=== PATIENT | male | born 1955 | race American Indian/Alaskan Native ===

== ENCOUNTER 2018-10-12 14:49 | Emergency (ER) | payer SELFPAY ==
--- NOTE | 2018-10-12 17:21 | XRay Report ---
FINAL REPORT EXAM: XR CHEST ROUTINE 2V HISTORY: COUGH TECHNIQUE: Two view chest PA and lateral PRIORS: None. FINDINGS: Cardiac and mediastinal contours are unremarkable. No focal pulmonary infiltrate is identified. No pleural fluid collection seen. Pulmonary vasculature is unremarkable. IMPRESSION: Negative two-view chest
--- NOTE | 2018-10-12 20:06 | Emergency Department Report ---
- General Chief Complaint: Upper Respiratory Infection Stated Complaint: HEADACHE/FEVER/KNOT ON HEAD Time Seen by Provider: 10/12/18 19:48 Source: patient Mode of arrival: Ambulatory Limitations: No Limitations - History of Present Illness Initial Comments: 63-year-old -[place]ian male department complaining of a 5-6 day history of cough, congestion, coryza, myalgia, headaches, fevers sensation.. Reports occasional sputum production and wheezing also normal. Denies any chest pain, shortness of breath, has had a dull throbbing headache which is circumferential and associated with sinus pressure. MD Complaint: fever, cough, rhinorrhea, nasal congestion -: Sudden Quality: dull Consistency: constant Context: sick contacts Associated Symptoms: fever, chills, myalgias, headache, rhinorrhea, nasal congestion, sore throat, cough, nausea. denies: diarrhea, dysuria, confusion, right sweats, weight loss, epistaxis, hoarseness, ear pain - Related Data Previous Rx's Medication Instructions Recorded Last Taken Type ALBUTEROL Inhaler (OR & NICU) 1 puff IH Q4-6H PRN #1 inha 10/12/18 Unknown Rx [ProAir HFA Inhaler] Amoxicillin 500 mg PO QID #40 capsule 10/12/18 Unknown Rx guaiFENesin/CODEINE [Robitussin AC] 5 ml PO Q6H PRN #120 ml 10/12/18 Unknown Rx Allergies Allergy/AdvReac Type Severity Reaction Status Date / Time No Known Allergies Allergy Unverified 10/12/18 15:20 ED Review of Systems ROS: Stated complaint: HEADACHE/FEVER/KNOT ON HEAD Other details as noted in HPI Constitutional: denies: chills, fever Eyes: denies: eye pain, eye discharge, vision change ENT: denies: ear pain, throat pain Respiratory: denies: cough, shortness of breath, wheezing Cardiovascular: denies: chest pain, palpitations Endocrine: no symptoms reported Gastrointestinal: denies: abdominal pain, nausea, diarrhea Genitourinary: denies: urgency, dysuria Musculoskeletal: denies: back pain, joint swelling, arthralgia Skin: denies: rash, lesions Neurological: denies: headache, weakness, paresthesias Psychiatric: denies: anxiety, depression Hematological/Lymphatic: denies: easy bleeding, easy bruising ED Past Medical Hx - Past Medical History Previous Medical History?: No - Surgical History Additional Surgical History: LEFT ANKLE - Social History Smoking Status: Never Smoker Substance Use Type: None - Medications Home Medications: Home Medications Medication Instructions Recorded Confirmed Last Taken Type ALBUTEROL Inhaler (OR & NICU) 1 puff IH Q4-6H PRN #1 inha 10/12/18 Unknown Rx [ProAir HFA Inhaler] Amoxicillin 500 mg PO QID #40 capsule 10/12/18 Unknown Rx guaiFENesin/CODEINE [Robitussin AC] 5 ml PO Q6H PRN #120 ml 10/12/18 Unknown Rx ED Physical Exam - General Limitations: No Limitations General appearance: alert, in no apparent distress - Head Head exam: Present: atraumatic, normocephalic - Eye Eye exam: Present: normal appearance, PERRL Pupils: Present: normal accommodation, other (and negative funduscopic examination) - ENT ENT exam: Present: normal exam (-), mucous membranes moist, other (sinus congestion bilaterally with yellowish mucus present. Small effusion to the left ear) - Neck Neck exam: Present: normal inspection, full ROM. Absent: lymphadenopathy, thyromegaly - Respiratory Respiratory exam: Present: normal lung sounds bilaterally, rhonchi. Absent: respiratory distress, wheezes, rales, decreased breath sounds, prolonged expiratory - Cardiovascular Cardiovascular Exam: Present: regular rate. Absent: systolic murmur, diastolic murmur, rubs, gallop - GI/Abdominal GI/Abdominal exam: Present: soft, normal bowel sounds. Absent: tenderness, guarding - Rectal Rectal exam: Present: deferred - Extremities Exam Extremities exam: Present: normal inspection, full ROM, normal capillary refill. Absent: pedal edema - Back Exam Back exam: Present: normal inspection - Neurological Exam Neurological exam: Present: alert, oriented X3, CN II-XII intact - Psychiatric Psychiatric exam: Present: normal affect, normal mood - Skin Skin exam: Present: warm, dry, intact, normal color. Absent: rash ED Course Vital Signs 10/12/18 15:17 Temperature 100.7 F H Pulse Rate 117 H Respiratory 18 Rate Blood Pressure 110/80 O2 Sat by Pulse 95 Oximetry ED Medical Decision Making - Medical Decision Making Having this sudden onset of viral syndrome and coryza with associated dull throbbing headache and sinus pressure. With cough with sputum production. No palpitations. No pedal edema, no chest pressure. Critical care attestation.: If time is entered above; I have spent that time in minutes in the direct care of this critically ill patient, excluding procedure time. ED Disposition Clinical Impression: Viral syndrome, Cough Disposition: DC-01 TO HOME OR SELFCARE Is pt being admited?: No Does the pt Need Aspirin: No Condition: Stable Instructions: Cold Symptoms (ED), Viral Syndrome (ED), Acute Bronchitis (ED), Pharyngitis (ED) Additional Instructions: Return to the emergency department, she developed an uncontrollable vomiting, abdominal pain, chest pain, and shortness of breath, uncontrollable fever, any worsening symptoms Referrals: [facility] [Provider Group] - 3-5 Days
[2018-10-12 20:31] VITALS: BP 127/81
== END 2018-10-12 21:04 | disposition home or self-care (01) ==
LOC: ED 14:49
DX: B34.9 Viral infection, unspecified (principal)
CPT/HCPCS: 71046; 93005; 93010; 99283

== ENCOUNTER 2019-03-26 09:48 | Emergency (ER) | payer SELFPAY ==
--- NOTE | 2019-03-26 11:29 | Emergency Department Report ---
ED Rash HPI - HPI Chief Complaint: Skin/Abscess/Foreign Body Stated Complaint: SORES IN SCALP Duration: 3 months Location: Head Suspected Cause: Unknown Rash Symptoms: Yes Itching, No Facial Swelling, No Tongue/Oral Swelling, No Breathing Difficulties, No Choking Sensation, No Wheezing/Dyspnea, No Peeling, No Blistering, No Fever, No Lightheaded, No Malaise, No Myalgias Severity: mild Other History: This is a 63-year-old -[place] female presents to the emergency room with 2 scab sores to scalp for 3 months. Patient states he is washing here daily and applying grease to scalp with no improvement of symptoms. He reports itching without pain. Patient states he does not have a primary care doctor to follow-up with soaking into the emergency room. Patient reports symptoms come and go over the past 3 months. He denies drainage, pain, swelling, or fever. ED Review of Systems ROS: Stated complaint: SORES IN SCALP Other details as noted in HPI Constitutional: denies: chills, fever Respiratory: denies: cough, shortness of breath, wheezing Cardiovascular: denies: chest pain, palpitations Skin: rash (pruritic rash to scalp). denies: lesions Neurological: denies: headache, weakness, paresthesias Psychiatric: denies: anxiety, depression ED Past Medical Hx - Past Medical History Previous Medical History?: No - Surgical History Past Surgical History?: Yes Additional Surgical History: LEFT ANKLE, Left leg - Social History Smoking Status: Current Every Day Smoker Substance Use Type: Alcohol, Marijuana - Medications Home Medications: Home Medications Medication Instructions Recorded Confirmed Last Taken Type ALBUTEROL Inhaler (OR & NICU) 1 puff IH Q4-6H PRN #1 inha 10/12/18 Unknown Rx [ProAir HFA Inhaler] Amoxicillin 500 mg PO QID #40 capsule 10/12/18 Unknown Rx guaiFENesin/CODEINE [Robitussin AC] 5 ml PO Q6H PRN #120 ml 10/12/18 Unknown Rx Clindamycin [Clindamycin CAP] 300 mg PO Q8H 10 Days #30 cap 03/26/19 Unknown Rx hydroCHLOROthiazide [HCTZ] 12.5 mg PO QDAY #30 capsule 03/26/19 Unknown Rx Rash Exam - Exam General: Vital signs noted. No distress. Alert and acting appropriately. HEENT: No Periorbital Edema, No Conjuctival Injection, No Chemosis, No Perioral Edema, No Tongue Edema, No Uvular Edema, No Compromised Airway, No Drooling Lungs: Yes Good Air Exchange (Normal Breath Sounds), No Wheezes, No Ronchi, No Stridor, No Cough, No Labored Respirations, No Retractions, No Use of Accessory Muscles, No Other Abnormal Lung Sounds Heart: Yes Regular, No Murmur Skin: Yes Encrustations (5-7 mm encrustation x 2 to right and left parietal scalp, nontender, no swelling or drainage.), No Urticarial Rash, No Maculopapular Rash, No Morbilliform rash, No Bulla(e), No Excoriations, No Wee ping, No Tenderness, No Erythema, No Edema ED Course Vital Signs 03/26/19 10:01 Temperature 97.5 F L Pulse Rate 68 Respiratory 18 Rate Blood Pressure 169/107 O2 Sat by Pulse 94 Oximetry Vital Signs 03/26/19 03/26/19 10:01 11:37 Temperature 97.5 F L Pulse Rate 68 62 Respiratory 18 Rate Blood Pressure 169/107 Blood Pressure 158/98 [Right] O2 Sat by Pulse 94 Oximetry ED Medical Decision Making - Medical Decision Making Patient was examined by me. Patient is in no acute distress. They are two encrustation to parietal scalp that appear to be folliculitis. Start clindamycin 300 mg po tid for 10 days. Referral to dermatology for continued care. Blood pressure elevated without diagnosis. Patient is asymptomatic. Will start HCTZ 12.5 mg po daily. Patient informed of results. Plan discussed with patient to discharge home and treat outpatient. He agrees with ER plan. Patient discharged home in stable condition. Follow up with PCP in 2-3 days for follow up of blood pressure. Critical care attestation.: If time is entered above; I have spent that time in minutes in the direct care of this critically ill patient, excluding procedure time. ED Disposition Clinical Impression: Folliculitis, Asymptomatic hypertension Disposition: TO HOME OR SELFCARE Is pt being admited?: No Does the pt Need Aspirin: No Condition: Stable Instructions: Folliculitis (ED), Hypertension (ED) Additional Instructions: Complete full course of antibiotics. I have provided a missile inspector for you to follow up with if symptoms are not improving as discussed. There is also a referral to a primary care doctor for your convenience. Prescriptions: Clindamycin [Clindamycin CAP] 300 mg PO Q8H 10 Days #30 cap hydroCHLOROthiazide [HCTZ] 12.5 mg PO QDAY #30 capsule Referrals: [facility] [Outside] - 3-[address] [facility] [Outside] - 3-5 Days [facility] [Outside] - 3-5 Days Time of Disposition: 11:49
[2019-03-26 12:16] VITALS: BP 158/98
== END 2019-03-26 11:57 | disposition home or self-care (01) ==
LOC: ED 09:48
DX: L73.9 Follicular disorder, unspecified (principal); I10 Essential (primary) hypertension; F17.200 Nicotine dependence, unspecified, uncomplicated; F12.10 Cannabis abuse, uncomplicated
CPT/HCPCS: 99282

== ENCOUNTER 2021-02-19 11:21 | Emergency (ER) | payer MEDICARE ==
--- NOTE | 2021-02-19 12:12 | Emergency Department Report ---
ED General Adult HPI - General Chief complaint: Abdominal Pain Stated complaint: HEADSORES/ABD PAIN Time Seen by Provider: 02/19/21 12:06 Source: patient Mode of arrival: Ambulatory Limitations: No Limitations - History of Present Illness Initial comments: 65 y/o male pt w/ hx of tobacco use presents to ED w/ complaints of intermittent epigastric pain for two weeks. No identifiable exacerbating or relieving factors. Pain lasts approximately 1-2 hours when present. Patient has never been screened for an abdominal aortic aneurysm. Endorses occasional alcohol use. He is not under the care of a primary care provider. Last bowel movement yesterday was normal. No history of prior abdominal surgeries. Denies fever, chills, nausea, vomiting, diarrhea, constipation, rectal bleeding, chest pain, shortness of breath, paresthesias, numbness, urinary symptoms. Denies all other complaints at this time. - Related Data Previous Rx's Medication Instructions Recorded Last Taken Type Albuterol Mdi (or & Nicu Only) 1 puff IH Q4-6H PRN #1 inha 10/12/18 Unknown Rx [ProAir HFA Inhaler] Amoxicillin 500 mg PO QID #40 capsule 10/12/18 Unknown Rx guaiFENesin/CODEINE [Robitussin AC] 5 ml PO Q6H PRN #120 ml 10/12/18 Unknown Rx Clindamycin [Clindamycin CAP] 300 mg PO Q8H 10 Days #30 cap 03/26/19 Unknown Rx hydroCHLOROthiazide [HCTZ] 12.5 mg PO QDAY #30 capsule 03/26/19 Unknown Rx Allergies Allergy/AdvReac Type Severity Reaction Status Date / Time No Known Allergies Allergy Verified 02/19/21 11:49 ED Review of Systems ROS: Stated complaint: HEADSORES/ABD PAIN Other details as noted in HPI Other: GENERAL: Negative for fever, chills, weight change, anorexia, fatigue. ENT: Negative for ear pain, difficulty hearing, sore throat, nasal congestion, epistaxis. CARDIOVASCULAR: Negative for chest pain, palpitations, lower extremity swelling. PULMONARY: Negative for cough, dyspnea, wheezing, orthopnea, cyanosis. GASTROINTESTINAL: Positive for abdominal pain. MUSCULOSKELETAL: Negative for joint pain, joint swelling, myalgias, back pain, neck pain. NEUROLOGICAL: Negative for headache, seizure, syncope, paresthesias, weakness. INTEGUMENTARY: Negative for erythema, rash, diaphoresis, laceration, ecchymosis. HEMATOLOGICAL: Negative for hemoptysis, hematemesis, hematochezia, hematuria. PSYCHIATRIC: Negative for hallucinations, suicidal ideation, homicidal ideation, anxiety, depression. ED Past Medical Hx - Past Medical History Previous Medical History?: No - Surgical History Additional Surgical History: LEFT ANKLE, Left leg - Social History Smoking Status: Current Every Day Smoker Substance Use Type: None - Medications Home Medications: Home Medications Medication Instructions Recorded Confirmed Last Taken Type Albuterol Mdi (or & Nicu Only) 1 puff IH Q4-6H PRN #1 inha 10/12/18 Unknown Rx [ProAir HFA Inhaler] Amoxicillin 500 mg PO QID #40 capsule 10/12/18 Unknown Rx guaiFENesin/CODEINE [Robitussin AC] 5 ml PO Q6H PRN #120 ml 10/12/18 Unknown Rx Clindamycin [Clindamycin CAP] 300 mg PO Q8H 10 Days #30 cap 03/26/19 Unknown Rx hydroCHLOROthiazide [HCTZ] 12.5 mg PO QDAY #30 capsule 03/26/19 Unknown Rx ED Physical Exam - General Limitations: No Limitations - Other Other exam information: General: Awake and alert. No acute distress. Head: Atraumatic, normocephalic. Eyes: EOMI. Pupils are equal and round. Normal sclera and conjunctiva. ENT: Oral mucosa is moist. Normal pharyngeal exam. Neck: Supple. No lymphadenopathy. Pulmonary: No respiratory distress. Clear to auscultation bilaterally. Cardiac: Regular rate and rhythm. Pulses are palpable and equal bilaterally. No lower extremity cyanosis or edema. Skin: Warm and dry. No rashes. Abdomen: Soft, non-protuberant. Epigastric tenderness without guarding, rig idity, or rebound. Bowel sounds are normal. No organomegaly or masses noted. Back: Normal alignment. No CVA tenderness. Extremities: Symmetrical. Full range of motion intact. Neurological: Alert and oriented, appropriately interactive, no focal deficits. Psych: Cooperative. Appropriate mood and affect. Speech is evenly metered. Thoughts are logically construed. ED Course Vital Signs 02/19/21 02/19/21 02/19/21 11:49 17:11 17:43 Temperature 98.5 F Pulse Rate 75 65 Respiratory 17 17 Rate Blood Pressure 103/63 [Right] O2 Sat by Pulse 94 96 Oximetry ED Medical Decision Making - Lab Data Result diagrams: 02/19/21 14:00 02/19/21 14:00 - Medical Decision Making Differential diagnosis including but not limited to: cholecystitis, pancreatitis, cholelithiasis, aortic aneurysm/dissection, bowel obstruction, bowel perforation On reevaluation, patient remains stable. Repeat abdominal exam is benign. Labs are unremarkable. CT of the abdomen/pelvis obtained for further evaluation of possible aortic aneurysm in the setting of patient's advanced age, tobacco use, and absence of associated GI symptoms. Imaging was unremarkable. Etiology of patient's ongoing abdominal pain is unclear however there is no clinical in dication for further diagnostic work-up on an emergent basis at this time. Patient has been referred to primary care provider for close outpatient follow- up. Patient expressed understanding is agreeable plan of care. Smoking cessation encouraged. Strict return precautions provided. Repeat exam is unremarkable and benign. History, exam, diagnostic testing, and current condition do not suggest worrisome pathology to warrant further testing, continued ED treatment, admission, or surgical evaluation at this point. Given the low probability of a significant medical illness, it would be more likely to result in harm than benefit to perform further testing at this stage. Discussed findings, presumptive diagnosis, need for follow-up and specific signs/symptoms that should prompt immediate return to the emergency department. Instructions were explained in detail to the patient in addition to giving written discharge information. Patient expressed understanding and was given the opportunity to ask questions, all of which were satisfactorily answered prior to discharge home. Critical care attestation.: If time is entered above; I have spent that time in minutes in the direct care of this critically ill patient, excluding procedure time. ED Disposition Clinical Impression: Nonspecific abdominal pain Disposition: DC-01 TO HOME OR SELFCARE Is pt being admited?: No Does the pt Need Aspirin: No Condition: Stable Instructions: Abdominal Pain, Adult, [id number] Additional Instructions: Take Tylenol every 4 hours as needed for pain. Follow-up with primary care provider this week. Call tomorrow to schedule an appointment. Return to the emergency department immediately for new or worsening symptoms. Specifically, return to the emergency department immediately for fever, vomiting, diarrhea, black/bloody stools, chest pain, shortness of breath, loss of consciousness, or any other concerns. Referrals: ALLISON CARDENAS MD [Staff Physician] - 3-5 Days Time of Disposition: 17:55
[2021-02-19 14:49] LABS: Basophils # (Auto) 0.1 K/mm3 (0.0-0.1); Eosinophils # (Auto) 0.2 K/mm3 (0.0-0.4); Eosinophils % (Auto) 3.6 % (0.0-4.3); Hemoglobin 16.1 gm/dl (11.8-15.2); Lymphocytes # (Auto) 2.1 K/mm3 (1.2-5.4); Mean Corpuscular HGB Conc 34 % (32-34); Mean Corpuscular Volume 99 fl (84-94); Monocytes # (Auto) 0.4 K/mm3 (0.0-0.8); Monocytes % (Auto) 7.6 % (0.0-7.3); Platelet Count 272 K/mm3 (140-440); Red Blood Count 4.77 M/mm3 (3.65-5.03); Red Cell Distribution Width 12.8 % (13.2-15.2)
[2021-02-19 15:13] LABS: Alanine Aminotransferase 12 units/L (7-56); Albumin 4.1 g/dL (3.9-5); BUN/Creatinine Ratio 17; Blood Urea Nitrogen 15 mg/dL (9-20); Calcium 9.2 mg/dL (8.4-10.2); Hemolysis Index 46
[2021-02-19 17:44] VITALS: BP 103/63
--- NOTE | 2021-02-19 17:50 | Cat Scan Report ---
CT ABDOMEN AND PELVIS WITH CONTRAST INDICATION: epigastric pain, no GI sx, hx smoking; AAA. TECHNIQUE: Axial CT images were obtained through the abdomen and pelvis after 100 cc IV contrast. All CT scans at this location are performed using CT dose reduction for ALARA by means of automated exposure contr ol. COMPARISON: None available. FINDINGS: LOWER CHEST: Prosthetic mitral valve. Mild cardiomegaly. LIVER: No significant abnormality. GALLBLADDER: No significant abnormality. Collapsed. BILE DUCTS: No significant abnormality. PANCREAS: No significant abnormality. SPLEEN: No significant abnormality. ADRENALS: No significant abnormality. RIGHT KIDNEY and URETER: No significant abnormality. LEFT KIDNEY and URETER: No significant abnormality. STOMACH and SMALL BOWEL: No significant abnormality. COLON: No significant abnormality. APPENDIX: No significant abnormality. PERITONEUM: No free fluid. No free air. No fluid collection. LYMPH NODES: No significant adenopathy. AORTA and ARTERIES: No significant abnormality. IVC and VEINS: No significant abnormality. URINARY BLADDER: No significant abnormality. REPRODUCTIVE ORGANS: No significant abnormality. ADDITIONAL FINDINGS: Simple 4.5 cm lipoma right lateral chest wall image 12 SKELETAL SYSTEM: Moderately advanced discogenic degenerative disease L4-5. Moderate facet degenerativ e disease lower lumbar spine. IMPRESSION: 1. No significant abnormality. Signer Name: Gaudencio Sanchez MD Signed: 02/19/2021 5:45 PM Workstation Name: [id number]
== END 2021-02-19 18:09 | disposition home or self-care (01) ==
LOC: ED 11:21
DX: R10.13 Epigastric pain (principal); F17.200 Nicotine dependence, unspecified, uncomplicated; Z79.899 Other long term (current) drug therapy
CPT/HCPCS: 36415; 74177; 80053; 83690; 83735; 85025; 99283; Q9967

== ENCOUNTER 2021-04-02 11:32 | Emergency (ER) | payer MEDICARE ==
[2021-04-02 13:11] VITALS: BP 154/99
--- NOTE | 2021-04-02 13:41 | Emergency Department Report ---
ED General Adult HPI - General Chief complaint: Abdominal Pain Stated complaint: ABD PAIN Time Seen by Provider: 04/02/21 13:36 Source: patient Mode of arrival: Ambulatory Limitations: No Limitations - History of Present Illness Initial comments: 65-year-old male patient presents to the emergency department with complaints of intermittent epigastric abdominal pain for approximately 2 months. Patient was evaluated in the emergency department for these symptoms last month. Labs and CT of the abdomen/pelvis were unremarkable. He was instructed to take Tylenol and referred to primary care provider for close outpatient follow-up. Patient states the pain does improve with Tylenol. He is scheduled to see the primary care provider next month. The pain has not evolved or worsened since his last emergency department visit. He is currently asymptomatic. Denies fever, chills, nausea, vomiting, diarrhea, constipation, rectal bleeding. Denies all other complaints at this time. - Related Data Previous Rx's Medication Instructions Recorded Last Taken Type Albuterol Mdi (or & Nicu Only) 1 puff IH Q4-6H PRN #1 inha 10/12/18 Unknown Rx [ProAir HFA Inhaler] Amoxicillin 500 mg PO QID #40 capsule 10/12/18 Unknown Rx guaiFENesin/CODEINE [Robitussin AC] 5 ml PO Q6H PRN #120 ml 10/12/18 Unknown Rx Clindamycin [Clindamycin CAP] 300 mg PO Q8H 10 Days #30 cap 03/26/19 Unknown Rx hydroCHLOROthiazide [HCTZ] 12.5 mg PO QDAY #30 capsule 03/26/19 Unknown Rx Famotidine [Pepcid] 20 mg PO BID 14 Days tablet 04/02/21 Unknown Rx Mupirocin [Bactroban 2%] 1 applic TP TID #1 tube 04/02/21 Unknown Rx Omeprazole 20 mg PO DAILY 14 Days capsule. 04/02/21 Unknown Rx Allergies Allergy/AdvReac Type Severity Reaction Status Date / Time No Known Allergies Allergy Verified 02/19/21 11:49 ED Review of Systems ROS: Stated complaint: ABD PAIN Other details as noted in HPI Other: GENERAL: Negative for fever, chills, weight change, anorexia, fatigue. ENT: Negative for ear pain, difficulty hearing, sore throat, nasal congestion, epistaxis. CARDIOVASCULAR: Negative for chest pain, palpitations, lower extremity swelling. PULMONARY: Negative for cough, dyspnea, wheezing, orthopnea, cyanosis. GASTROINTESTINAL: Positive for intermittent abdominal pain. MUSCULOSKELETAL: Negative for joint pain, joint swelling, myalgias, back pain, neck pain. NEUROLOGICAL: Negative for headache, seizure, syncope, paresthesias, weakness. INTEGUMENTARY: Negative for erythema, rash, diaphoresis, laceration, ecchymosis. HEMATOLOGICAL: Negative for hemoptysis, hematemesis, hematochezia, hematuria. PSYCHIATRIC: Negative for hallucinations, suicidal ideation, homicidal ideation, anxiety, depression. ED Past Medical Hx - Surgical History Additional Surgical History: LEFT ANKLE, Left leg - Social History Smoking Status: Current Every Day Smoker Substance Use Type: Alcohol - Medications Home Medications: Home Medications Medication Instructions Recorded Confirmed Last Taken Type Albuterol Mdi (or & Nicu Only) 1 puff IH Q4-6H PRN #1 inha 10/12/18 Unknown Rx [ProAir HFA Inhaler] Amoxicillin 500 mg PO QID #40 capsule 10/12/18 Unknown Rx guaiFENesin/CODEINE [Robitussin AC] 5 ml PO Q6H PRN #120 ml 10/12/18 Unknown Rx Clindamycin [Clindamycin CAP] 300 mg PO Q8H 10 Days #30 cap 03/26/19 Unknown Rx hydroCHLOROthiazide [HCTZ] 12.5 mg PO QDAY #30 capsule 03/26/19 Unknown Rx Famotidine [Pepcid] 20 mg PO BID 14 Days tablet 04/02/21 Unknown Rx Mupirocin [Bactroban 2%] 1 applic TP TID #1 tube 04/02/21 Unknown Rx Omeprazole 20 mg PO DAILY 14 Days capsule. 04/02/21 Unknown Rx ED Physical Exam - General Limitations: No Limitations - Other Other exam information: General: Awake and alert. No acute distress. Head: Atraumatic, normocephalic. Eyes: EOMI. Pupils are equal and round. Normal sclera and conjunctiva. ENT: Oral mucosa is moist. Normal pharyngeal exam. Neck: Supple. No lymphadenopathy. Pulmonary: No respiratory distress. Clear to auscultation bilaterally. Cardiac: Regular rate and rhythm. Pulses are palpable and equal bilaterally. No lower extremity cyanosis or edema. Skin: Warm and dry. Three superficial abrasions noted to the scalp. Abdomen: Soft, non-tender, non-protuberant. No guarding, rigidity, or rebound. Bowel sounds are normal. No organomegaly or masses noted. Back: Normal alignment. No CVA tenderness. Extremities: Symmetrical. Full range of motion intact. Neurological: Alert and oriented, appropriately interactive, no focal deficits. Psych: Cooperative. Appropriate mood and affect. Speech is evenly metered. Thoughts are logically construed. ED Course Vital Signs 04/02/21 13:08 Temperature 98.3 F Pulse Rate 74 Respiratory 16 Rate Blood Pressure 154/99 O2 Sat by Pulse 98 Oximetry ED Medical Decision Making - Medical Decision Making Differential diagnosis including but not limited to: cholecystitis, pancreatitis, aortic aneurysm/dissection, GERD, esophagitis, peptic ulcer disease Patient presents to the emergency department with complaints of chronic intermittent epigastric pain. He is afebrile, hemodynamically stable, well- hydrated, no distress, tolerating oral intake without difficulty. Abdominal exam is benign. He is currently asymptomatic. He was evaluated in the emergency department for identical symptoms last month. Labs and CT scan were unremarkable. He was referred to primary care provider and is still awaiting his follow-up appointment. Patient admits that his symptoms, which are currently absent, are no different today than they were at the time of his previous evaluation. There is no clinical indication for repeat diagnostic evaluation on an emergent basis at this time. Patient will be discharged home with appropriate symptomatic treatment for possible underlying GERD versus pep tic ulcer disease, as well as topical antibiotic ointment requested by patient for scalp abrasions. Emphasized the importance of keeping his scheduled outpatient follow-up appointment and referred to gastroenterology for outpatient colonoscopy. Patient expressed understanding and is agreeable to plan of care. Strict return precautions provided. History, exam, diagnostic testing, and current condition do not suggest worrisome pathology to warrant further testing, continued ED treatment, admission, or surgical evaluation at this point. Given the low probability of a significant medical illness, it would be more likely to result in harm than benefit to perform further testing at this stage. Discussed findings, presumptive diagnosis, need for follow-up and specific signs/symptoms that shou ld prompt immediate return to the emergency department. Instructions were explained in detail to the patient in addition to giving written discharge information. Patient expressed understanding and was given the opportunity to ask questions, all of which were satisfactorily answered prior to discharge home. Critical care attestation.: If time is entered above; I have spent that time in minutes in the direct care of this critically ill patient, excluding procedure time. ED Disposition Clinical Impression: Chronic epigastric pain Scalp abrasion Qualifiers: Encounter type: initial encounter Qualified Code(s): S00.01XA - Abrasion of scalp, initial encounter Disposition: TO HOME OR SELFCARE Is pt being admited?: No Does the pt Need Aspirin: No Condition: Stable Instructions: Gastroesophageal Reflux Disease, Adult, [id number] Additional Instructions: Continue taking Tylenol every 4 hours as needed for pain. Take Pepcid and Omeprazole as directed. Use Bactroban ointment as directed. Stay well-hydrated. Maintain a healthy diet. Follow-up with Dr. Gallo in April as scheduled. See referral information below for additional medical clinics. Follow-up with [facility] this week. Call today to schedule an appointment. Return to the emergency department immediately for new or worsening symptoms. Prescriptions: Mupirocin [Bactroban 2%] 1 applic TP TID #1 tube Omeprazole 20 mg PO DAILY 14 Days capsule. Famotidine [Pepcid] 20 mg PO BID 14 Days tablet Referrals: [facility] [Provider Group] - 3-5 Days [facility] [Provider Group] - 3-5 Days [facility] [Outside] - 3-5 Days [facility] [Outside] - 3-5 Days [facility] [Outside] - 3-5 Days Time of Disposition: 13:43
== END 2021-04-02 14:45 | disposition home or self-care (01) ==
LOC: ED 11:32
DX: S00.01XA Abrasion of scalp, initial encounter (principal); R10.13 Epigastric pain; G89.29 Other chronic pain; F17.200 Nicotine dependence, unspecified, uncomplicated; Z98.890 Other specified postprocedural states; Z79.2 Long term (current) use of antibiotics; Z79.899 Other long term (current) drug therapy; X58.XXXA Exposure to other specified factors, initial encounter; Y93.89 Activity, other specified; Y92.89 Other specified places as the place of occurrence of the external cause; Y99.8 Other external cause status
CPT/HCPCS: 99281

== ENCOUNTER 2021-05-01 09:09 | Outpatient (CLI) | payer MEDICARE ==
[2021-05-01 09:40] LABS: Basophils # (Auto) 0.1 K/mm3 (0.0-0.1); Basophils % (Auto) 2.2 % (0.0-1.8); Eosinophils # (Auto) 0.1 K/mm3 (0.0-0.4); Eosinophils % (Auto) 2.4 % (0.0-4.3); Hematocrit 45.6 % (35.5-45.6); Hemoglobin 15.5 gm/dl (11.8-15.2); Lymphocytes # (Auto) 1.8 K/mm3 (1.2-5.4); Lymphocytes % (Auto) 42.1 % (13.4-35.0); Mean Corpuscular HGB Conc 34 % (32-34); Mean Corpuscular Volume 97 fl (84-94); Monocytes # (Auto) 0.3 K/mm3 (0.0-0.8); Monocytes % (Auto) 6.5 % (0.0-7.3); Platelet Count 212 K/mm3 (140-440); Red Blood Count 4.69 M/mm3 (3.65-5.03); Red Cell Distribution Width 12.8 % (13.2-15.2)
[2021-05-01 09:58] LABS: Alanine Aminotransferase 10 units/L (7-56); Albumin 4.4 g/dL (3.9-5); BUN/Creatinine Ratio 12; Blood Urea Nitrogen 11 mg/dL (9-20); Calcium 9.6 mg/dL (8.4-10.2); Chol/HDL Ratio 2.76 %; HDL Cholesterol 60 mg/dL (40-59); Hemolysis Index 5; LDL Cholesterol,Direct 103 mg/dL (50-130)
[2021-05-04 13:00] LABS: Vitamin D, 25-OH, D2 <4 ng/mL
== END 2021-05-01 09:10 | disposition home or self-care (01) ==
LOC: LAB 09:09
PROVIDERS: ATTEND Internal Medicine
DX: Z13.1 Encounter for screening for diabetes mellitus (principal); Z13.220 Encounter for screening for lipoid disorders; Z00.00 Encounter for general adult medical examination without abnormal findings; E55.9 Vitamin D deficiency, unspecified; I10 Essential (primary) hypertension
CPT/HCPCS: 36415; 80053; 80061; 82306; 83036; 84443; 85025

== ENCOUNTER 2022-05-19 09:44 | Outpatient (CLI) | payer MEDICARE ==
[2022-05-19 12:32] LABS: Basophils # (Auto) 0.1 K/mm3 (0.0-0.1); Basophils % (Auto) 1.2 % (0.0-1.8); Eosinophils # (Auto) 0.2 K/mm3 (0.0-0.4); Eosinophils % (Auto) 4.3 % (0.0-4.3); Hematocrit 52.1 % (35.5-45.6); Hemoglobin 17.3 gm/dl (11.8-15.2); Lymphocytes # (Auto) 1.9 K/mm3 (1.2-5.4); Lymphocytes % (Auto) 39.3 % (13.4-35.0); Mean Corpuscular HGB Conc 33 % (32-34); Mean Corpuscular Volume 98 fl (84-94); Monocytes # (Auto) 0.4 K/mm3 (0.0-0.8); Monocytes % (Auto) 8.4 % (0.0-7.3); Platelet Count 224 K/mm3 (140-440); Red Blood Count 5.31 M/mm3 (3.65-5.03); Red Cell Distribution Width 12.5 % (13.2-15.2)
[2022-05-19 12:48] LABS: Alanine Aminotransferase 14 units/L (7-56); Albumin 4.9 g/dL (3.9-5); BUN/Creatinine Ratio 14; Blood Urea Nitrogen 13 mg/dL (9-20); Calcium 10.1 mg/dL (8.4-10.2); Chol/HDL Ratio 3.61 %; HDL Cholesterol 62 mg/dL (40-59); Hemolysis Index 12; LDL Cholesterol,Direct 147 mg/dL (50-130)
== END 2022-05-19 09:45 | disposition home or self-care (01) ==
LOC: LABHHL 09:44
PROVIDERS: ATTEND Internal Medicine
DX: E55.9 Vitamin D deficiency, unspecified (principal); I10 Essential (primary) hypertension; R39.11 Hesitancy of micturition; R73.03 Prediabetes; E66.3 Overweight; Z00.00 Encounter for general adult medical examination without abnormal findings
CPT/HCPCS: 36415; 80053; 80061; 82306; 84153; 84443; 85025